=== PATIENT | female | born 2000 | race Two or more races ===

== ENCOUNTER 2023-10-10 18:13 | Emergency (ER) | payer BC ==
[~2023-10-10] VITALS: Ht 165.1 cm; Wt 81.6 kg
[2023-10-10] MEDS ORDERED: METOCLOPRAMIDE HCL 5 MG/ML VIAL IM STA (19:45)
[2023-10-10] MEDS ORDERED: RINGERS SOLUTION,LACTATED 1,000 ML IV STA (19:45)
[2023-10-10] MEDS ORDERED: FAMOtidine 10 MG/ML (4ML VIAL) IV PUSH STA (19:46)
[2023-10-10] MEDS ORDERED: PROMETHAZINE HCL 50 MG/ML AMPUL IM STA (19:46)
[2023-10-10] MEDS ORDERED: PROMETHAZINE HCL 50 MG/ML AMPUL IM ONE (19:51)
[2023-10-10] MEDS ORDERED: FAMOtidine 200mg/20ml VIAL ONE (19:52)
[2023-10-10] MEDS ORDERED: METOCLOPRAMIDE HCL 5 MG/ML VIAL ONE (19:52)
[2023-10-10 20:10] LABS: MEAN CELL VOLUME 87.9 fL (80.00-100.00); MEAN CORPUSCULAR HEMOGLOBIN 30.8 pg (27.00-32.0); PLATELET COUNT 421 K/uL (150-450); RED BLOOD COUNT 4.55 M/uL (4.00-6.00); RED CELL DISTRIBUTION WIDTH 12.6 % (11.5-14.5)
[2023-10-10 20:38] LABS: BILIRUBIN TOTAL 0.97 mg/dL (0.3-1.2); CALCIUM 10.3 mg/dL (8.5-10.1); CREATININE SERUM 0.73 mg/dL (0.55-1.02); GFR 99.69; GLOBULINA 4.2 G/DL (2.4-3.5); POTASSIUM 3.32 mEq/L (3.5-5.1); TOTAL PROTEIN 9.2 gm/dL (6.4-8.2)
[2023-10-10] MEDS ORDERED: DIPHENHYDRAMINE HCL 50 MG/ML VIAL 1ML IV STA (21:36)
[2023-10-10] MEDS ORDERED: DIPHENHYDRAMINE HCL 50 MG/ML VIAL 1ML ONE (22:01)
== END 2023-10-10 22:49 | disposition home or self-care (01) ==
LOC: ER 18:14
DX: R11.10 Vomiting, unspecified (principal); F41.1 Generalized anxiety disorder